=== PATIENT | male | born 1985 ===

== ENCOUNTER 2025-06-27 09:34 | Emergency (ER) | payer MEDICAID ==
[~2025-06-27] VITALS: Ht 177.8 cm; Wt 109.0 kg
[2025-06-27 09:55] VITALS: O2SAT 98
[2025-06-27] MEDS ORDERED: MAGN296S91 MT (10:36)
[2025-06-27] MEDS ORDERED: HYDR453.4 TP (10:36)
[2025-06-27] MEDS ORDERED: SENN-215 MT (10:36)
[2025-06-27 11:00] VITALS: BP 128/64; PULSE 94; RESP 18; TEMP 36.7; O2SAT 98
== END 2025-06-27 11:02 | disposition home or self-care (01) ==
LOC: ER 09:34
DX: K59.00 Constipation, unspecified (principal); I10 Essential (primary) hypertension; Z98.890 Other specified postprocedural states
CPT/HCPCS: 99282